=== PATIENT | female | born 1990 | race Asian ===

== ENCOUNTER 2023-06-07 17:14 | Emergency (ER) | payer MEDICAID ==
[~2023-06-07] VITALS: Ht 157.5 cm; Wt 60.0 kg
[2023-06-07 17:24] VITALS: BP 134/75; PULSE 114; RESP 18; TEMP 100; O2SAT 96
[2023-06-07 18:47] LABS: BILIRUBIN,URINE NEGATIVE (Neg); COLOR,URINE YELLOW (Yellow); GLUCOSE, URINE NEGATIVE (Neg); KETONES,URINE NEGATIVE (Neg); LEUKOCYTE ESTERASE ,URINE SMALL (Neg); NITRITES, URINE POSITIVE (Neg); OCCULT BLOOD,URINE SMALL (Neg); PROTEIN,URINE 100 mg/dl (Neg)
[2023-06-07 18:50] LABS: URINE HCG NEGATIVE (NEG)
[2023-06-07 18:51] LABS: CLARITY,URINE CLOUDY (Clear); UA COLLECTION TYPE CLN CATCH MIDSTREAM
[2023-06-07 18:54] LABS: BACTERIA,URINE 2+ /HPF (Neg); SQUAMOUS EPITHELIAL CELL,UR FEW /LPF (FEW); WBC CLUMPS,URINE FEW /HPF (NEGATIVE); WBC,URINE 50-100 /HPF (0-4)
[2023-06-07] MEDS ORDERED: CefTRIAXone 500MG IM Kit w/LIDOcaine IM ONE (20:20)
[2023-06-07] MEDS ORDERED: CEPH250T PO (20:25)
[2023-06-07] MEDS ORDERED: PHEN-786 PO (20:26)
== END 2023-06-07 20:42 | disposition home or self-care (01) ==
LOC: ER 17:16
DX: N39.0 Urinary tract infection, site not specified (principal); Z79.2 Long term (current) use of antibiotics; Z79.899 Other long term (current) drug therapy
CPT/HCPCS: 81001; 81025; 87088; 87186; 96372; 99283; J0696; 87077